=== PATIENT | female | born 1975 | race Caucasian/White ===

== ENCOUNTER → 2017-02-24 | Outpatient (CLI) | payer OTHER ==
[~2017-02-24] MED LIST: BCP TD; PHENERGAN 25 TA25 MG PO
== END ==
LOC: MC.RAD 09:06
DX: Z12.31 Encounter for screening mammogram for malignant neoplasm of breast (principal)

== ENCOUNTER 2018-02-14 23:46 | Emergency (ER) | payer OTHER ==
[~2018-02-14] VITALS: Ht 170.2 cm; Wt 62.7 kg
[2018-02-14 23:57] VITALS: TEMP 97.7
[2018-02-15 02:54] VITALS: BP 146/82; PULSE 96
== END 2018-02-15 02:54 | disposition home or self-care (01) ==
LOC: COL.ER 23:46
DX: S52.531A Colles' fracture of right radius, initial encounter for closed fracture (principal); S01.81XA Laceration without foreign body of other part of head, initial encounter; W19.XXXA Unspecified fall, initial encounter; W22.8XXA Striking against or struck by other objects, initial encounter; Y92.009 Unspecified place in unspecified non-institutional (private) residence as the place of occurrence of the external cause
CPT/HCPCS: J2405; J2795; J3010

== ENCOUNTER → 2018-03-02 | Outpatient (CLI) | payer OTHER | LOC: MC.RAD 11:32 | DX: Z12.31 Encounter for screening mammogram for malignant neoplasm of breast (principal) ==

== ENCOUNTER → 2019-03-09 | Outpatient (CLI) | payer BC | LOC: MC.RAD 11:15 | DX: Z12.31 Encounter for screening mammogram for malignant neoplasm of breast (principal) ==

== ENCOUNTER → 2021-04-30 | Outpatient (CLI) | payer BC | LOC: MC.RAD 07:38 | DX: Z12.31 Encounter for screening mammogram for malignant neoplasm of breast (principal) ==

== ENCOUNTER → 2022-05-07 | Outpatient (CLI) | payer BC | LOC: MC.RAD 10:45 | DX: Z12.31 Encounter for screening mammogram for malignant neoplasm of breast (principal) ==

== ENCOUNTER → 2023-05-22 | Outpatient (CLI) | payer BC | LOC: MC.RAD 16:17 | DX: Z12.31 Encounter for screening mammogram for malignant neoplasm of breast (principal) ==